=== PATIENT | female | born 1955 | race Caucasian/White ===

== ENCOUNTER 2016-12-30 19:04 | Emergency (ER) | payer BC, OTHER ==
[2016-12-30] MEDS ORDERED: Bacitracin Zinc 1 Packet ONE (19:41)
== END 2016-12-30 19:46 | disposition home or self-care (01) ==
LOC: BURERS 19:04
DX: S61.012A Laceration without foreign body of left thumb without damage to nail, initial encounter (principal); M06.9 Rheumatoid arthritis, unspecified; W26.0XXA Contact with knife, initial encounter
CPT/HCPCS: 12001; J2001